=== PATIENT | female | born 1955 | race Caucasian/White ===

== ENCOUNTER 2020-01-23 13:09 | Inpatient (IN) | payer MEDICAID, OTHER ==
--- NOTE | 2020-01-23 13:18 | ED ---
Psych HPI - General Chief Complaint: Psychiatric Symptoms Stated Complaint: Mental health Time Seen by Provider: 01/23/20 13:17 Source: patient, family Mode of arrival: ambulatory - History of Present Illness Initial Comments: Patient is a 64-year-old female with history of schizophrenia presenting to the emergency department for psychiatric evaluation. Daughter states the patient woke up this morning and felt more anxious than usual. Patient states she's been hearing voices and has suicidal ideations. Patient states she would usually use pills to commit suicide. She denies any visual hallucinations, only audible. Daughter states the patient has been taking her medication accordingly. Patient denies any other complaints. - Related Data Home Medications Medication Instructions Recorded Confirmed Aspirin EC [Ecotrin Low Dose] 81 mg PO DAILY 01/23/20 01/23/20 Benztropine Mesylate [Cogentin] 0.25 mg PO HS 01/23/20 01/23/20 FLUoxetine HCL [PROzac] 40 mg PO DAILY 01/23/20 01/23/20 Metoprolol Tartrate [Lopressor] 25 mg PO DAILY 01/23/20 01/23/20 QUEtiapine FUMARATE [SEROquel XR] 300 mg PO HS 01/23/20 01/23/20 busPIRone HCL 15 mg PO TID 01/23/20 01/23/20 Allergies Allergy/AdvReac Type Severity Reaction Status Date / Time No Known Allergies Allergy Verified 01/23/20 15:26 Review of Systems ROS Statement: Those systems with pertinent positive or pertinent negative responses have been documented in the HPI. ROS Other: All systems not noted in ROS Statement are negative. Past Medical History Past Medical History: COPD, Hyperlipidemia Additional Past Medical History / Comment(s): Heart murmur History of Any Multi-Drug Resistant Organisms: None Reported Past Surgical History: Appendectomy, Bladder Surgery, Tubal Ligation Additional Past Surgical History / Comment(s): Brain surgery x2 Past Psychological History: Anxiety, Depression, Schizophrenia Smoking Status: Never smoker Past Alcohol Use History: Occasional Past Drug Use History: None Reported General Exam Limitations: no limitations General appearance: alert, in no apparent distress, obese Head exam: Present: atraumatic, normocephalic, normal inspection Eye exam: Present: normal appearance, PERRL, EOMI Pupils: Present: normal accommodation ENT exam: Present: normal exam, mucous membranes moist, TM's normal bilaterally, normal external ear exam Neck exam: Present: normal inspection, full ROM. Absent: tenderness Respiratory exam: Present: normal lung sounds bilaterally. Absent: respiratory distress, wheezes, rales Cardiovascular Exam: Present: regular rate, normal rhythm, normal heart sounds Extremities exam: Present: normal inspection, full ROM, normal capillary refill. Absent: tenderness Back exam: Present: normal inspection, full ROM Neurological exam: Present: alert, oriented X3 Psychiatric exam: Present: normal affect, suicidal ideation Skin exam: Present: warm, dry, intact, normal color Course Vital Signs 01/23/20 01/23/20 13:11 15:40 Temperature 98.7 F Pulse Rate 67 64 Respiratory 18 16 Rate Blood Pressure 115/78 116/53 O2 Sat by Pulse 97 96 Oximetry Medical Decision Making - Medical Decision Making Patient is a 64-year-old female with history significant for any presenting to the emergency department for psychiatric evaluation. Patient is currently contemplating suicide after she had audible hallucinations today. States she will kill herself using whatever tablets are available to her. She does not have any homicidal thoughts or ideations. UA positive for benzodiazepines and T Moses. EPS evaluated patient and she will be admitted for further management. - Lab Data Lab Results 01/23/20 Range/Units 13:18 Urine Opiates Screen Not Detected (NotDetected) Ur Oxycodone Screen Not Detected (NotDetected) Urine Methadone Screen Not Detected (NotDetected) Ur Propoxyphene Screen Not Detected (NotDetected) Ur Barbiturates Screen Not Detected (NotDetected) U Tricyclic Antidepress Detected H (NotDetected) Ur Phencyclidine Scrn Not Detected (NotDetected) Ur Amphetamines Screen Not Detected (NotDetected) U Methamphetamines Scrn Not Detected (NotDetected) U Benzodiazepines Scrn Detected H (NotDetected) Urine Cocaine Screen Not Detected (NotDetected) U Marijuana (THC) Screen Not Detected (NotDetected) Disposition Clinical Impression: Suicidal ideation Disposition: ADMITTED IP TO THIS [facility] Condition: Good Is patient prescribed a controlled substance at d/c from ED?: No Referrals: None,Stated [Primary Care Provider] - 1-2 days Time of Disposition: 16:28
[2020-01-23 14:18] LABS: Amphetamine Screen,Urine Not Detected (NotDetected); Barbiturate Screen,Urine Not Detected (NotDetected); Benzodiazepines Screen,Urine Detected (NotDetected); Cocaine Screen,Urine Not Detected (NotDetected); Methadone Screen, Urine Not Detected (NotDetected); Opiate Screen,Urine Not Detected (NotDetected); Oxycodone Screen, Urine Not Detected (NotDetected); Phencyclidine Screen,Urine Not Detected (NotDetected); Tricyclic Antidepressant,Urine Detected (NotDetected); Urn Cannabinoid Scrn Not Detected (NotDetected)
[2020-01-23] MEDS ORDERED: LORazepam 1 MG TAB PO PRN (17:32)
[2020-01-23] MEDS ORDERED: ACETAMINOPHEN TAB 325 MG TAB PO PRN (17:32)
[2020-01-23] MEDS ORDERED: MAGNESIUM HYDROXIDE 2,400 MG/10 ML CUP PO PRN (17:32)
[2020-01-23] MEDS ORDERED: MAG HYDROX/AL HYDROX/SIMETH 30 ML CUP PO PRN (17:32)
[2020-01-23] MEDS ORDERED: ZIPRASIDONE 20 MG VIAL IM PRN (17:32)
[2020-01-23] MEDS ORDERED: OLANZapine 5 MG TAB PO SCH (21:00)
--- NOTE | 2020-01-24 02:04 | P.MDCNMH ---
History of Present Illness H&P Date: 01/24/20 Chief Complaint: acute psychosis 64 year old female with schizophrenia patient was brought in to the ED for psych evaluation due to acute psychosis, daughter brought the patient , and claims that she has been compliant with her meds. patient ,. claims that she hears voices , usually with suicidal thoughts. she denies any medical concerns denies any fever, chills, urinary symptoms , chest pain or trouble breathing, denies any URI symptoms , or GI symptoms Review of Systems Pertinent positives as noted in HPI. All other systems were reviewed and are negative Past Medical History Past Medical History: COPD, Hyperlipidemia Additional Past Medical History / Comment(s): Heart murmur History of Any Multi-Drug Resistant Organisms: None Reported Past Surgical History: Appendectomy, Bladder Surgery, Tubal Ligation Additional Past Surgical History / Comment(s): Brain surgery x2 Past Psychological History: Anxiety, Depression, Schizophrenia Smoking Status: Never smoker Past Alcohol Use History: Occasional Past Drug Use History: None Reported - Past Family History family Family Medical History: No Reported History Medications and Allergies Home Medications Medication Instructions Recorded Confirmed Type Aspirin EC [Ecotrin Low Dose] 81 mg PO DAILY 01/23/20 01/23/20 History Benztropine Mesylate [Cogentin] 0.25 mg PO HS 01/23/20 01/23/20 History FLUoxetine HCL [PROzac] 40 mg PO DAILY 01/23/20 01/23/20 History Metoprolol Tartrate [Lopressor] 25 mg PO DAILY 01/23/20 01/23/20 History QUEtiapine FUMARATE [SEROquel XR] 300 mg PO HS 01/23/20 01/23/20 History busPIRone HCL 15 mg PO TID 01/23/20 01/23/20 History Allergies Allergy/AdvReac Type Severity Reaction Status Date / Time No Known Allergies Allergy Verified 01/23/20 15:26 Physical Exam Vitals: Vital Signs Temp Pulse Pulse Resp BP BP Pulse Ox 01/23/20 17:55 99.7 F H 76 18 112/64 95 01/23/20 15:40 64 16 116/53 96 01/23/20 13:11 98.7 F 67 18 115/78 97 Intake and Output 01/23/20 01/23/20 01/24/20 14:59 22:59 06:59 Other: Weight 90.718 kg 89.1 kg Constitutional: No acute distress, conversant, pleasant Eyes: Anicteric sclerae, moist conjunctiva, Pupils equal round reactive to light ENMT: NC/AT Oropharynx clear, no erythema, or exudates Neck: Supple, FROM, no masses, or JVD No carotid bruits No thyromegaly Lungs: Clear to auscultation Clear to percussion Normal respiratory effort, no accessory muscle use Cardiovascular: Heart regular in rate and rhythm, No murmurs, gallops, or rubs No peripheral edema Abdominal: Soft Nontender, no guarding, rebound or rigidity Abdomen moving with respiration Normoactive bowel sounds No hepatomegaly, No splenomegaly No palpable mass No abdominal wall hernia noted Skin: Normal temperature, tone, texture, turgor No induration No subcutaneous nodules No rash, lesions No ulcers Extremities: No digital cyanosis No clubbing Pedal pulses intact and symmetrical Radial pulses intact and symmetrical No calf tenderness Psychiatric: Alert and oriented to person, place and time flat affect poor judgement Neuro Muscles Strength 5/5 in all 4 extremities Sensation to light touch grossly present throughout Cranial nerves II-XII grossly intact No focal sensory deficits Lymphatics: no palpable cervical or supraclavicular , or inguinal lymph nodes Cranial Nerve Examination - Cranial Nerves Cranial Nerve II- Optic: Intact Cranial Nerve III- Oculomotor: Intact Cranial Nerve IV- Trochlear: Intact Cranial Nerve V- Trigeminal: Intact Cranial Nerve - Abducens: Intact Cranial Nerve VII- Facial: Intact Cranial Nerve VIII- Auditory: Intact Cranial Nerve IX- Glossopharyngeal: Intact Cranial Nerve X- Vagus: Intact Cranial Nerve XI- Accessory: Intact Cranial Nerve XII- Hypoglossal: Intact Results Labs: Abnormal Lab Results - Last 24 Hours (Table) 01/23/20 Range/Units 13:18 U Tricyclic Antidepress Detected H (NotDetected) U Benzodiazepines Scrn Detected H (NotDetected) Assessment and Plan Assessment: acute psychosis , auditory hallucinations schizophrenia suicidal ideation management per psych Follow-up labs Thank you for allowing us to participate in the care of this patient. We will follow peripherally. Do not hesitate to contact us with questions. Someone can be reached from the [facility] hospitalist group at all hours of the day at [phone].
[2020-01-24 08:07] LABS: Basophils # (A) 0.1 k/uL (0-0.2); Basophils % (A) 1 %; Eosinophils # (A) 0.1 k/uL (0-0.7); Eosinophils % (A) 1 %; HCT 49.8 % (34.0-46.0); HGB 15.7 gm/dL (11.4-16.0); Lymphocytes # (A) 2.5 k/uL (1.0-4.8); Lymphocytes % (A) 35 %; MCH 26.6 pg (25.0-35.0); MCHC 31.5 g/dL (31.0-37.0); MCV 84.5 fL (80.0-100.0); Mean Platelet Volume 7.2; Monocytes # (A) 0.3 k/uL (0-1.0); Monocytes % (A) 4 %; Neutrophils # (A) 4.2 k/uL (1.3-7.7); Neutrophils % (A) 59 %; Platelet Count 192 k/uL (150-450); WBC 7.2 k/uL (3.8-10.6)
[2020-01-24 08:16] LABS: ALT 17 U/L (4-34); AST 22 U/L (14-36); African American GFR (CKD) >90 (>60 ml/min/1.73 sqM); Albumin 4.3 g/dL (3.5-5.0); Alkaline Phosphatase 98 U/L (38-126); Anion Gap 6 mmol/L; Blood Urea Nitrogen 13 mg/dL (7-17); Calcium 9.5 mg/dL (8.4-10.2); Carbon Dioxide 34 mmol/L (22-30); Chloride 100 mmol/L (98-107); Cholesterol 180 mg/dL (<200); Glucose 119 mg/dL (74-99); HDL Cholesterol 47 mg/dL (40-60); LDL Cholesterol,Calculated 108 mg/dL (0-99); Non-African American GFR(CKD) 90 (>60 ml/min/1.73 sqM); Sodium 140 mmol/L (137-145); Total Bilirubin 0.7 mg/dL (0.2-1.3); Total Protein 6.7 g/dL (6.3-8.2); Triglycerides 126 mg/dL (<150)
[2020-01-24] MEDS: ASPIRIN 81 MG PO SCH (08:46)
[2020-01-24] MEDS: METOPROLOL TARTRATE 25 MG TAB PO SCH (08:46)
[2020-01-24] MEDS: FLUoxetine HCL 20 MG CAP PO SCH (08:46)
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
[2020-01-24] MEDS ORDERED: OLANZapine 2.5 MG TAB PO SCH (21:00)
[2020-01-24 21:19] LABS: Hemoglobin A1C 5.8 % (4.0-6.0)
--- NOTE | 2020-01-25 09:36 | P.PN ---
Progress Note - Text Progress Note Date: 01/25/20 Interval History: Patient was seen in her bedroom socializing with her peers and was directable and agreeable to speak with physician underwriter in the office. Patient reports that she is feeling less depressed than yesterday. She continues to endorse some low mood but at this time patient denies any suicidal or homical ideations, intent or plan. Patient denies any auditory, visual hallucinations and denies any paranoia or delusions. She reports that she last experienced auditory hallucinations yesterday. She reports no issues with appetite or sleep. She denies any issues with balance and states that she has not had no falls while present on the unit. Patient denies any side effects from the medications and has been compliant with meds. Mental Status Exam: General Appearance: Patient appears to be stated age is alert, directable, and cooperative. She ambulates via assistance with a walker. Obese body habitus. Lacking dentition. Behavior: Patient is calmly seated without any agitated behavior. Speech: Patient's speech is fluent and nonpressured. Mood/Affect: Mood is improving mildly, affect is congruent and constricted. Suicidality/Homicidality: Patient denies having any suicidal or homicidal ideation intent or plan. Perceptions: Patient denies any visual hallucinations and denies any auditory hallucinations Though content/process: There is no evidence of any delusional thought content and thought process is linear and goal-directed. Memory and concentration: AOX3, grossly intact for the purposes of this session Judgment and insight: Improving mildly Assessment Schizophrenia Rule out major depressive disorder with psychotic features versus ana maría izoaffective disorder Plan: -Patient continues to meet criteria for inpatient psychiatric admission for symptom stabilization and safety. Patient has signed adult voluntary form and medication consent and was placed in patient's chart. -Medications: We will increase Zyprexa to 10 mg by mouth daily at bedtime at bedtime to address psychosis and low mood. We will likely hold at this dose due to p atient's age and side effect profile of the medications. We discussed at length the risks, benefits, and alternatives of this medication with the patient who expressed understanding. We will continue Prozac 20 mg by mouth daily to address depressive symptoms -When necessary Ativan and Geodon for agitation/aggression. -SW on board for discharge planning. Encouraged the patient to participate in [place] [place].
[2020-01-25] MEDS: METOPROLOL TARTRATE 25 MG TAB PO SCH (09:44)
[2020-01-25] MEDS: FLUoxetine HCL 20 MG CAP PO SCH (09:44)
[2020-01-25] MEDS: ASPIRIN 81 MG PO SCH (09:44)
[2020-01-25] MEDS ORDERED: OLANZapine 10 MG TAB PO SCH (21:00)
[2020-01-26 07:00] VITALS: BP 139/70; PULSE 82; RESP 17; TEMP 98.2
[2020-01-26] MEDS: ASPIRIN 81 MG PO SCH (09:26)
[2020-01-26] MEDS: METOPROLOL TARTRATE 25 MG TAB PO SCH (09:26)
[2020-01-26] MEDS: FLUoxetine HCL 20 MG CAP PO SCH (09:26)
--- NOTE | 2020-01-26 10:23 | P.PN ---
Progress Note - Text Progress Note Date: 01/26/20 Interval History: Patient was seen wandering the hallways and was directable and agreeable to speak with engineering technical writer in the office. Patient reports that she is feeling overall better. She is not endorsing any significant symptoms in regards to depression or anxiety at this time. The patient denies any suicidal or homical ideations, intent or plan. She continues to endorse auditory hallucinations, stating that she last heard them last night. She is unable to elaborate on the content or nature of the auditory hallucinations that she cannot recall. Patient denies any side effects from the medications and has been compliant with meds. [facility] note was reviewed. The patient last seen by [facility] on 01/10/2020. At the time patient has been prescribed Seroquel XR 300 mg, and grabs a 40 mg, BuSpar 15 mg 3 times a day, benztropine 0.5 mg, and Prozac 40 mg. She has also had a medication trial of Risperdal 2 mg twice a day. Patient has history of tardive dyskinesia as per [facility] note. Uncertain at this time whether her current presentation is due to tardive dyskinesia versus lack of dentition. Mental Status Exam: General Appearance: Patient appears to be stated age is alert, directable, and cooperative. Ambulates via assistance with a walker. Obese body habitus. Lacking dentition. Behavior: Patient is calmly seated without any agitated behavior. Perioral mouth movements are noted. Speech: Patient's speech is fluent and nonpressured. Mood/Affect: Mood is improving mildly, affect is congruent and constricted. Suicidality/Homicidality: Patient denies having any suicidal or homicidal ideation intent or plan. Perceptions: Patient denies any visual hallucinations but continues to endorse auditory hallucinations Though content/process: There is no evidence of any delusional thought content and thought process is linear and goal-directed. Memory and concentration: AOX3, grossly intact for the purposes of this session Judgment and insight: Improving mildly Assessment Schizophrenia Plan: -Patient continues to meet criteria for inpatient psychiatric admission for symptom stabilization and safety. Patient has signed adult voluntary form and medication consent and was placed in patient's chart. -Medications: Continue Zyprexa 10 mg by mouth at bedtime for psychosis Continue Prozac 20 mg by mouth daily for depression -When necessary Ativan and Geodon for agitation/aggression. -SW on board for discharge planning. Encouraged the patient to participate in milieu. -Anticipate discharge early next week
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
== END 2020-01-26 14:15 | disposition home or self-care (01) | DRG 885 ==
LOC: EC 13:09 → 3MHU 17:23
PROVIDERS: ADMIT Psychiatry & Neurology Psychiatry; ATTEND Psychiatry & Neurology Psychiatry
DX: F20.9 Schizophrenia, unspecified (principal); R45.851 Suicidal ideations; E78.5 Hyperlipidemia, unspecified; F32.9 Major depressive disorder, single episode, unspecified; J44.9 Chronic obstructive pulmonary disease, unspecified; F41.9 Anxiety disorder, unspecified; R01.1 Cardiac murmur, unspecified; H53.9 Unspecified visual disturbance; G24.01 Drug induced subacute dyskinesia; Z79.82 Long term (current) use of aspirin; Z79.899 Other long term (current) drug therapy; Z90.49 Acquired absence of other specified parts of digestive tract; Z98.890 Other specified postprocedural states; Z98.51 Tubal ligation status; Z86.69 Personal history of other diseases of the nervous system and sense organs; Z56.0 Unemployment, unspecified; Z81.8 Family history of other mental and behavioral disorders; Z81.1 Family history of alcohol abuse and dependence
CPT/HCPCS: 80053; 80061; 80306; 82075; 83036; 84443; 85025; 93005; 99285